=== PATIENT | female | born 1975 | race Caucasian/White ===

== ENCOUNTER 2017-05-14 18:48 | Emergency (ER) | payer OTHER ==
[~2017-05-14] VITALS: Ht 162.6 cm; Wt 90.7 kg
[~2017-05-14 18:48] MED LIST: FLOMAX PO; NOHOMEMEDICATIONS; NORCO 5-325 TA1 EACH PO; PERCOCET 5-3251 EACH PO; TORADOL 10 MG T10 MG PO; ZOFRAN ODT4 MG PO
[2017-05-14] MEDS ORDERED: LISINOPRIL10 MG PO (18:56)
[2017-05-14] MEDS ORDERED: XANAX 0.25 MG0.25 MG PO (18:56)
[2017-05-14 19:29] LABS: ABSOLUTE BASOPHILS 0.2 thou/uL (0.0-0.2); ABSOLUTE EOSINOPHILS 0.4 thou/uL (0.0-0.7); ABSOLUTE LYMPHOCYTES 2.5 thou/uL (0.8-5.3); ABSOLUTE MONOCYTES 1.2 thou/uL (0.0-1.2); ABSOLUTE NEUTROPHILS 15.6 thou/uL (1.6-8.1); BASOPHILS 0.8 %; EOSINOPHILS 1.8 %; HEMATOCRIT 44.7 % (37.0-47.0); HEMOGLOBIN 14.9 gm/dL (12.0-15.0); LYMPHOCYTES 12.6 %; MCH 30.6 pg (26.0-34.0); MCHC 33.4 g/dL (28.0-37.0); MCV 91.5 fL (80.0-100.0); MPV 8.2 fl. (7.2-11.1); NUCLEATED RBCS 0 /100WBC; PLATELET COUNT* 327 thou/uL (150-400); POLYS 78.8 %; RBC 4.89 mil/uL (4.20-5.00); WBC 19.7 thou/uL (4.0-11.0)
[2017-05-14 19:30] LABS: URINE BILIRUBIN NEGATIVE (Negative); URINE BLOOD 3+ (Negative); URINE CLARITY CLOUDY; URINE COLOR YELLOW; URINE GLUCOSE-RANDOM NEGATIVE (Negative); URINE KETONES NEGATIVE (Negative); URINE LEUKOCYTES-REFLEX 1+ (Negative); URINE PROTEIN 2+ (Negative); URINE SPECIFIC GRAVITY 1.025 (1.005-1.030); URINE UROBILINOGEN 0.2 E.U./dl (0.2-1.0)
[2017-05-14 19:33] LABS: URINE NITRITE-REFLEX POSITIVE (Negative)
[2017-05-14 19:35] LABS: CALCIUM 9.6 mg/dL (8.5-10.1); CREATININE 0.9 mg/dL (0.6-1.3); POTASSIUM 3.6 mmol/L (3.5-5.1)
[2017-05-14 19:40] LABS: ALBUMIN 3.8 g/dL (3.4-5.0); TOTAL BILIRUBIN 0.3 mg/dL (<0.1-1.0); TOTAL PROTEIN 7.7 g/dL (6.4-8.2)
[2017-05-14 19:40] LABS: SQUAMOUS 4-10 Moderate /LPF (0-3)
[2017-05-14 19:44] LABS: AMORPHOUS PHOSPHATES Moderate /LPF (None Seen); CASTS None Seen /LPF (None Seen); MUCUS None Seen strn/LPF (None Seen); URINE WBC-REFLEX 6-15 Few /HPF (0-5); WBC CLUMPS Few (None Seen)
[2017-05-14] MEDS ORDERED: ZOFRAN4 MG PO (20:51)
[2017-05-14] MEDS ORDERED: CIPRO500 M1 PO (20:51)
[2017-05-14] MEDS ORDERED: NORCO 5-325 TA1 EACH PO (20:59)
[2017-05-14 21:44] VITALS: BP 124/69
== END 2017-05-14 21:47 | disposition home or self-care (01) ==
LOC: M.ERS 18:48
PROVIDERS: Nurse Practitioner Family
DX: N12 Tubulo-interstitial nephritis, not specified as acute or chronic (principal)

== ENCOUNTER 2017-09-14 23:43 | Emergency (ER) | payer OTHER, MEDICAID ==
[~2017-09-14] VITALS: Ht 165.1 cm; Wt 81.7 kg
[~2017-09-14 23:43] MED LIST changes: +CIPRO500 M1 PO; +LISINOPRIL10 MG PO; +XANAX 0.25 MG0.25 MG PO; +ZOFRAN4 MG PO
[2017-09-14] MEDS ORDERED: VENLAFAXINE (23:54)
[2017-09-14] MEDS ORDERED: MIRENA1 EACH (23:58)
[2017-09-15] MEDS ORDERED: TORADOL 10 MG T10 MG PO (00:23)
[2017-09-15] MEDS ORDERED: ACETAMINOPHEN-1 EAC1 PO (00:23)
[2017-09-15 00:35] VITALS: BP 157/107
== END 2017-09-15 00:35 | disposition home or self-care (01) ==
LOC: M.ERS 23:43
DX: M26.621 Arthralgia of right temporomandibular joint (principal); F32.9 Major depressive disorder, single episode, unspecified

== ENCOUNTER 2017-11-13 13:52 | Emergency (ER) | payer OTHER, MEDICAID ==
[~2017-11-13] VITALS: Ht 165.1 cm; Wt 90.7 kg
[~2017-11-13 13:52] MED LIST changes: +ACETAMINOPHEN-1 EAC1 PO; +MIRENA1 EACH; +VENLAFAXINE
[2017-11-13] MEDS ORDERED: OMEPRAZOLE 20 M20 M1 PO (14:05)
[2017-11-13] MEDS ORDERED: VENLAFAXINE HC150 M1 PO (14:06)
[2017-11-13] MEDS ORDERED: OMEPRAZOLE40 MG PO (14:31)
[2017-11-13 14:47] VITALS: BP 136/100
== END 2017-11-13 14:49 | disposition home or self-care (01) ==
LOC: M.ERS 13:52
DX: K21.9 Gastro-esophageal reflux disease without esophagitis (principal); F32.9 Major depressive disorder, single episode, unspecified; F17.210 Nicotine dependence, cigarettes, uncomplicated